=== PATIENT | female | born 1960 | race Caucasian/White ===

== ENCOUNTER 2019-02-20 07:39 | Day surgery (SDC) | payer BC ==
[~2019-02-20 07:39] MED LIST: Lactated Ringers 1,000 ML IV SCH; Sodium Chloride 0.9% 10 ML SDV IV PRN; Sodium Chloride 0.9% 10 ML Syringe FLUSH PRN; Sodium Chloride 0.9% 2.5 ML Syringe FLUSH PRN
--- NOTE | 2019-02-20 09:02 | PCM.PREANE ---
Preanesthetic Assessment - Anesthesia/Transfusion/Family Hx Anesthesia History: Prior Anesthesia Without Reaction Family History of Anesthesia Reaction: No Transfusion History: No Prior Transfusion(s) - Review of Systems General: No Symptoms Pulmonary: No Symptoms Cardiovascular: No Symptoms Gastrointestinal: No Symptoms Neurological: No Symptoms Other: Reports: None - Physical Assessment NPO Status Date: 02/19/19 Vital Signs: Last Vital Signs Temp 97.7 F 02/20/19 08:06 Pulse 82 02/20/19 08:06 Resp 14 02/20/19 08:06 BP 151/76 H 02/20/19 08:06 Pulse Ox 97 02/20/19 08:06 Height: 5 ft 9 in Weight: 112.037 kg ASA Class: 2 Mental Status: Alert & Oriented x3 Airway Class: Mallampati = 2 Dentition: Reports: Normal Dentition ROM/Head Extension: Full Lungs: Clear to Auscultation, Normal Respiratory Effort Cardiovascular: Regular Rate, Regular Rhythm - Allergies Allergies/Adverse Reactions: Allergies Allergy/AdvReac Type Severity Reaction Status Date / Time Penicillins Allergy Cannot Verified 02/20/19 08:38 Remember Sulfa (Sulfonamide Allergy Rash Verified 02/20/19 08:38 Antibiotics) - Blood Blood Available: No - Anesthesia Plan Pre-Op Medication Ordered: None - Acknowledgements Anesthesia Type Planned: General Anesthesia Pt an Appropriate Candidate for the Planned Anesthesia: Yes Alternatives and Risks of Anesthesia Discussed w Pt/Guardian: Yes Pt/Guardian Understands and Agrees with Anesthesia Plan: Yes Additional Comments: anes prob list: large neck circ but denies sx of HAILEY, trace AI, mild MR, heart failure with EF of 55%, DM@, anxiety PLAN: tiva PreAnesthesia Questionnaire HEENT History: Reports: Other (See Below) Other HEENT History: wears glasses Cardiovascular History: Reports: High Cholesterol, Hypertension, Other (See Below) Other Cardiovascular History: aortic and mitral valve regurgitation, both mild Respiratory History: Reports: None Gastrointestinal History: Reports: Other (See Below) Other Gastrointestinal History: occasional heartburn Genitourinary History: Reports: None [employer] MANAGER History: Reports: Musculoskeletal History: Reports: Fracture Other Musculoskeletal History: hx fx wrist, nose and rt tib-fib Neurological History: Reports: Concussion Psychiatric History: Reports: Anxiety Endocrine/Metabolic History: Reports: Diabetes, Type II, Obesity/BMI 30+, Osteopenia Hematologic History: Reports: None Immunologic History: Reports: None Oncologic (Cancer) History: Reports: Squamous Cell Carcinoma Other Oncologic History: skin cancer removed from leg Dermatologic History: Reports: None - Past Surgical History Head Surgeries/Procedures: Reports: None HEENT Surgical History: Reports: None Cardiovascular Surgical History: Reports: None Respiratory Surgical History: Reports: None GI Surgical History: Reports: Appendectomy, Colonoscopy Female Surgical History: Reports: Section Endocrine Surgical History: Reports: None Neurological Surgical History: Reports: None Musculoskeletal Surgical History: Reports: Other (See Below) Other Musculoskeletal Surgeries/Procedures:: ORIF rt tib fib fx Oncologic Surgical History: Reports: None Dermatological Surgical History: Reports: Skin Biopsy - SUBSTANCE USE Smoking Status *Q: Never Smoker Recreational Drug Use History: No - HOME MEDS Home Medications: Home Meds Aspirin [Ecotrin EC] 81 mg PO DAILY 02/14/19 [History] Cholecalciferol (Vitamin D3) [Vitamin D3] 2 tab.chew CHEW DAILY 02/14/19 [ History] Cyanocobalamin (Vitamin B12) [Vitamin B12] 500 mcg PO DAILY 02/14/19 [History] Enalapril [Vasotec] 2.5 mg PO DAILY 02/14/19 [History] Lactobacillus Acidophilus [Probiotic] 1 tab PO DAILY 02/14/19 [History] Multivitamin [Multivitamins] 1 tab PO DAILY 02/14/19 [History] Venlafaxine HCl [Venlafaxine HCl ER] 150 mg PO DAILY 02/14/19 [History] atorvaSTATin Calcium [Atorvastatin Calcium] 10 mg PO DAILY 02/14/19 [History] metFORMIN HCl [Metformin HCl ER] 2 tab PO BID 02/14/19 [History] - CURRENT (IN HOUSE) MEDS Current Meds: Current Medications Lactated Ringer's (Ringers, Lactated) 1,000 mls @ 125 mls/hr IV ASDIRECTED BLAISE Last Admin: 02/20/19 08:31 Dose: 125 mls/hr Sodium Chloride (Saline Flush) 10 ml FLUSH ASDIRECTED PRN PRN Reason: Keep Vein Open Sodium Chloride (Saline Flush) 2.5 ml FLUSH ASDIRECTED PRN PRN Reason: Keep Vein Open Sodium Chloride (Saline Flush) 10 ml FLUSH ASDIRECTED PRN PRN Reason: Keep Vein Open Sodium Chloride (Saline Flush) 2.5 ml FLUSH ASDIRECTED PRN PRN Reason: Keep Vein Open Sodium Chloride (Normal Saline) 10 ml IV ASDIRECTED PRN PRN Reason: IV Use
[2019-02-20] MEDS ORDERED: Propofol 200 MG/20 ML SDV ONE (09:33)
[2019-02-20] MEDS ORDERED: Ketamine 500 mg/10 ML MDV ONE (09:33)
[2019-02-20] MEDS ORDERED: Lidocaine 2% 5 ML SDV ONE (09:33)
--- NOTE | 2019-02-20 11:17 | PCM48HPAN ---
Post Anesthesia Note - EVALUATION WITHIN 48HRS OF ANESTHETIC Vital Signs in Normal Range: Yes Patient Participated in Evaluation: Yes Respiratory Function Stable: Yes Airway Patent: Yes Cardiovascular Function Stable: Yes Hydration Status Stable: Yes Pain Control Satisfactory: Yes Nausea and Vomiting Control Satisfactory: Yes Mental Status Recovered: Yes Vital Signs: Last Vital Signs Temp 97.7 F 02/20/19 08:06 Pulse 69 02/20/19 10:40 Resp 14 02/20/19 10:40 BP 158/76 H 02/20/19 10:40 Pulse Ox 97 02/20/19 10:40
--- NOTE | 2019-02-20 11:17 | PCM.POSTAN ---
POST ANESTHESIA ASSESSMENT - MENTAL STATUS Mental Status: Alert, Oriented - VITAL SIGNS Vital Signs: Last Vital Signs Temp 97.7 F 02/20/19 08:06 Pulse 69 02/20/19 10:40 Resp 14 02/20/19 10:40 BP 158/76 H 02/20/19 10:40 Pulse Ox 97 02/20/19 10:40 - RESPIRATORY Respiratory Status: Respiratory Rate WNL, Airway Patent, O2 Saturation Stable - CARDIOVASCULAR CV Status: Pulse Rate WNL, Blood Pressure Stable - GASTROINTESTINAL GI Status: No Symptoms - POST OP HYDRATION Hydration Status: Adequate & Stable
--- NOTE | 2019-02-20 12:22 | PCM.OPNOTE ---
- General Post-Op/Procedure Note Date of Surgery/Procedure: 02/20/19 Operative Procedure(s): Screening colonoscopy Findings: Normal colonoscopy Pre Op Diagnosis: Screening colonoscopy Post-Op Diagnosis: Normal colonoscopy Anesthesia Technique: MAC Primary Surgeon: Yoana Connolly Condition: Good Free Text/Narrative:: Intake & Output 02/19/19 02/20/19 02/20/19 22:59 06:59 14:59 Intake Total 700 Balance 700
--- NOTE | 2019-02-20 13:13 | OR ---
SURGEON: YOANA CONNOLLY MD DATE OF PROCEDURE: 02/20/2019 PREOPERATIVE DIAGNOSIS: Screening colonoscopy. POSTOPERATIVE DIAGNOSIS: Screening colonoscopy. PROCEDURE PERFORMED: Screening colonoscopy. PRIMARY SURGEON: Yoana Connolly MD. ANESTHESIA: MAC. INSTRUMENT USED: Olympus colonoscope. EXTENT OF EXAM: To the cecum. PREPARATION: Good. LIMITATIONS: None. INDICATION FOR EXAMINATION: The patient is a 59-year-old female who presents for screening colonoscopy. I explained the procedure, expected perioperative course, and risks including bleeding, infection, or damage to surrounding structures including perforation. She verbalized understanding and wishes to proceed. PROCEDURE IN DETAIL: The patient was brought into the endoscopy suite and placed in the left lateral decubitus position. Time-out was completed verifying the patient's name, age, date of , allergies, and procedure to be performed. Monitored anesthesia care was induced and continuous oxygen was provided via nasal cannula throughout the procedure. After adequate sedation was achieved, a digital rectal exam was performed. This exam was within normal limits. A well-lubricated colonoscope was inserted in the rectum and advanced under direct visualization to the level of the cecum. The cecum was identified by both visual and anatomic landmarks. A photograph was taken of the cecal cap as well as with the scope retroflexed within the cecum. The scope was then fully withdrawn while examining the color, texture, anatomy, and integrity of the mucosa from the cecum to the anal canal. The findings were consistent with normal colonic mucosa. The scope was then brought into the rectum and retroflexed to allow visualization of the anal canal opening. This appeared normal and a photograph was taken. Scope was then straightened out and fully withdrawn. The cecum to anus time was greater than 6 minutes. The patient tolerated the procedure well and was transferred to the PACU in stable condition. ENDOSCOPIC DIAGNOSIS: Normal colonoscopy. RECOMMENDATIONS: Follow up in clinic in 10 years. MARLYN / MIHIR /[id number]
== END 2019-02-20 11:06 | disposition home or self-care (01) ==
LOC: MW.SDS 07:39
PROVIDERS: ATTEND Surgery
DX: Z12.11 Encounter for screening for malignant neoplasm of colon (principal); I50.22 Chronic systolic (congestive) heart failure; I08.0 Rheumatic disorders of both mitral and aortic valves; I83.90 Asymptomatic varicose veins of unspecified lower extremity; E11.9 Type 2 diabetes mellitus without complications; E78.5 Hyperlipidemia, unspecified; E55.9 Vitamin D deficiency, unspecified; E66.3 Overweight; F41.9 Anxiety disorder, unspecified; Z88.0 Allergy status to penicillin; Z88.2 Allergy status to sulfonamides; Z68.36 Body mass index [BMI] 36.0-36.9, adult; Z79.82 Long term (current) use of aspirin; Z79.84 Long term (current) use of oral hypoglycemic drugs; Z79.899 Other long term (current) drug therapy
CPT/HCPCS: 45378; J2001; J2704; J7120; 00812

== ENCOUNTER 2023-02-05 07:40 | Day surgery (SDC) | payer BC ==
[~2023-02-05 07:40] MED LIST changes: -Sodium Chloride 0.9% 10 ML SDV IV PRN; -Sodium Chloride 0.9% 10 ML Syringe FLUSH PRN; -Sodium Chloride 0.9% 2.5 ML Syringe FLUSH PRN
[2023-02-05] MEDS ORDERED: fentaNYL 250 MCG/5 ML SDV ONE (08:39)
[2023-02-05] MEDS ORDERED: propofoL 50 ML ONE (08:39)
[2023-02-05] MEDS ORDERED: Propofol 200 MG/20 ML SDV ONE (08:39)
[2023-02-05] MEDS ORDERED: Ondansetron 4 MG/2 ML SDV ONE (09:13)
[2023-02-05] MEDS ORDERED: Sugammadex Sodium 200 MG/2 ML VIAL ONE (09:13)
[2023-02-05] MEDS ORDERED: Rocuronium Bromide 50 MG/5 ML Syringe ONE (09:13)
[2023-02-05] MEDS ORDERED: Ketorolac 30 MG/ML SDV ONE (09:13)
[2023-02-05] MEDS ORDERED: Naloxone 0.4 MG/ML SDV IVPUSH PRN (09:42)
[2023-02-05] MEDS ORDERED: droPERidol 5 MG/2 ML SDV IVPUSH PRN (09:42)
[2023-02-05] MEDS ORDERED: Metoclopramide 10 MG/2 ML SDV IVPUSH PRN (09:42)
[2023-02-05] MEDS ORDERED: fentaNYL 50 MCG/ML SDV IVPUSH PRN (09:42)
[2023-02-05] MEDS ORDERED: Morphine 2 MG/ML SYRINGE IVPUSH PRN (09:42)
[2023-02-05] MEDS ORDERED: HYDROmorphone 1 MG/ML Syringe IVPUSH PRN (09:42)
[2023-02-05] MEDS ORDERED: Albuterol 0.083% 2.5 MG/3 ML Neb Soln NEB PRN (09:42)
[2023-02-05] MEDS ORDERED: Ondansetron 4 MG/2 ML SDV IVPUSH PRN (09:42)
== END 2023-02-05 10:50 | disposition home or self-care (01) ==
LOC: MW.SDS 07:40
PROVIDERS: ATTEND Obstetrics & Gynecology
DX: N95.0 Postmenopausal bleeding (principal); I10 Essential (primary) hypertension; E78.5 Hyperlipidemia, unspecified; E78.00 Pure hypercholesterolemia, unspecified; E11.9 Type 2 diabetes mellitus without complications; F41.9 Anxiety disorder, unspecified; M85.80 Other specified disorders of bone density and structure, unspecified site; E66.9 Obesity, unspecified; Z88.0 Allergy status to penicillin; Z88.2 Allergy status to sulfonamides; Z79.82 Long term (current) use of aspirin; Z79.899 Other long term (current) drug therapy; Z79.84 Long term (current) use of oral hypoglycemic drugs; Z68.37 Body mass index [BMI] 37.0-37.9, adult
CPT/HCPCS: 58558; J1885; J2704; J3010; J3490; J7120; 00952; J2405

== ENCOUNTER 2023-03-21 07:30 | Emergency (ER) | payer BC ==
[2023-03-21] MEDS ORDERED: Sodium Chloride 0.9% 2.5 ML Syringe FLUSH PRN (07:48)
[2023-03-21] MEDS ORDERED: Sodium Chloride 0.9% 10 ML Syringe FLUSH PRN (07:48)
[2023-03-21] MEDS ORDERED: Ketorolac 30 MG/ML SDV IVPUSH ONE ×2 (07:49→15:05)
[2023-03-21] MEDS ORDERED: Ondansetron 4 MG/2 ML SDV IVPUSH ONE ×2 (07:49→15:05)
[2023-03-21] MEDS ORDERED: Sodium Chloride 0.9% 1,000 ML IV ONE (07:50)
[2023-03-21 08:15] LABS: APPEARANCE,URINE SLT CLOUDY; BILIRUBIN,URINE NEGATIVE (NEGATIVE); COLOR,URINE YELLOW; GLUCOSE,URINE NEGATIVE (NEGATIVE); KETONES,URINE NEGATIVE (NEGATIVE); LEUKOCYTE ESTERASE,URINE NEGATIVE (NEGATIVE); NITRITE,URINE NEGATIVE (NEGATIVE); OCCULT BLOOD,URINE MODERATE (NEGATIVE); PH,URINE 7.5 (5.0-8.0); PROTEIN,URINE TRACE mg/dL (NEGATIVE); UROBILINOGEN,URINE 0.2 EU/dL (<2.0)
[2023-03-21 08:23] LABS: AMORPHOUS SEDIMENT,URINE FEW (NEGATIVE); BACTERIA,URINE 1+ (NEGATIVE); EPITHELIAL CELLS,URINE RARE (NONE-FEW); MUCUS,URINE LIGHT (NONE-MOD); WBC,URINE 0-1 (0-5/HPF)
[2023-03-21 08:30] LABS: BASOPHILS ABSOLUTE AUTO 0.04 K/uL (0.00-0.20); BASOPHILS PERCENT AUTO 0.3 % (0.0-1.0); EOSINOPHILS ABSOLUTE AUTO 0.01 K/uL (0.00-0.45); EOSINOPHILS PERCENT AUTO 0.1 % (0.0-6.0); HEMATOCRIT 37.9 % (37.0-47.0); HEMOGLOBIN 12.7 g/dL (12.0-16.0); IMMATURE GRAN ABSOLUTE AUTO 0.05 K/uL (0.00-0.05); IMMATURE GRAN PERCENT AUTO 0.4 % (0.0-0.4); LYMPHOCYTES ABSOLUTE AUTO 0.96 K/uL (1.00-4.80); LYMPHOCYTES PERCENT AUTO 7.2 % (24.0-44.0); MEAN CORPUSCULAR HEMOGLOBIN 27.9 pg (28.0-32.0); MEAN CORPUSCULAR HGB CONC 33.5 g/dL (32.0-36.0); MEAN CORPUSCULAR VOLUME 83.1 fL (83.0-99.0); MEAN PLATELET VOLUME 10.3 fL (9.4-12.3); MONOCYTES ABSOLUTE AUTO 0.52 K/uL (0.00-0.80); MONOCYTES PERCENT AUTO 3.9 % (0.0-8.0); NEUTROPHILS ABSOLUTE AUTO 11.73 K/uL (1.80-7.70); NEUTROPHILS PERCENT AUTO 88.1 % (41.0-71.0); PLATELET COUNT,PLT 267 K/uL (150-400); RED BLOOD CELL COUNT 4.56 M/uL (4.10-5.30); WHITE BLOOD CELL COUNT,WBC 13.31 K/uL (3.9-11.3)
[2023-03-21 08:50] LABS: BILIRUBIN TOTAL 0.8 mg/dL (0.2-1.0); CALCIUM 10.4 mg/dL (8.5-10.1); CARBON DIOXIDE,CO2 25.4 mmol/L (21.0-32.0); CREATININE 1.2 mg/dL (0.6-1.0); EST CRCL DRUG DOSING (CG) 49.5 mL/min; POTASSIUM,K 4.1 mmol/L (3.5-5.1); PROTEIN TOTAL,TP 8.1 g/dL (6.4-8.2)
[2023-03-21] MEDS ORDERED: Iopamidol 755 MG/ML 500 ML Multipack Bottle IVPUSH STA (09:20)
[2023-03-21] MEDS ORDERED: cefTRIAXone 2 GM in Sodium Chloride 0.9% 50 ML IV ONE (10:09)
[2023-03-21] MEDS ORDERED: Naloxone 0.4 MG/ML SDV IVPUSH PRN (12:37)
[2023-03-21] MEDS ORDERED: Morphine 2 MG/ML SYRINGE IVPUSH ONE (12:37)
[2023-03-21] MEDS ORDERED: Sodium Chloride 0.9% 1,000 ML IV SCH (15:00)
== END 2023-03-21 15:21 ==
LOC: MW.ED 07:30
DX: N39.0 Urinary tract infection, site not specified (principal); N13.2 Hydronephrosis with renal and ureteral calculous obstruction; I10 Essential (primary) hypertension; E78.00 Pure hypercholesterolemia, unspecified; E11.9 Type 2 diabetes mellitus without complications; E66.9 Obesity, unspecified; Z68.33 Body mass index [BMI] 33.0-33.9, adult; Z79.899 Other long term (current) drug therapy; Z79.82 Long term (current) use of aspirin; Z88.0 Allergy status to penicillin; Z88.2 Allergy status to sulfonamides
CPT/HCPCS: 36415; 74177; 80053; 81001; 83690; 85025; 96361; 96365; 96375; 96376; 99285; J0696; J1885; J2270; J2405; J3490; J7030; Q9967; 99291

== ENCOUNTER 2023-07-31 11:48 | Emergency (ER) | payer BC ==
[2023-07-31 13:05] LABS: BASOPHILS ABSOLUTE AUTO 0.04 K/uL (0.00-0.20); BASOPHILS PERCENT AUTO 0.5 % (0.0-1.0); EOSINOPHILS ABSOLUTE AUTO 0.15 K/uL (0.00-0.45); HEMATOCRIT 35.7 % (37.0-47.0); HEMOGLOBIN 11.9 g/dL (12.0-16.0); IMMATURE GRAN ABSOLUTE AUTO 0.02 K/uL (0.00-0.05); IMMATURE GRAN PERCENT AUTO 0.3 % (0.0-0.4); LYMPHOCYTES ABSOLUTE AUTO 1.36 K/uL (1.00-4.80); LYMPHOCYTES PERCENT AUTO 18.2 % (24.0-44.0); MEAN CORPUSCULAR HEMOGLOBIN 28.6 pg (28.0-32.0); MEAN CORPUSCULAR HGB CONC 33.3 g/dL (32.0-36.0); MEAN CORPUSCULAR VOLUME 85.8 fL (83.0-99.0); MEAN PLATELET VOLUME 10.2 fL (9.4-12.3); MONOCYTES ABSOLUTE AUTO 0.48 K/uL (0.00-0.80); MONOCYTES PERCENT AUTO 6.4 % (0.0-8.0); NEUTROPHILS ABSOLUTE AUTO 5.43 K/uL (1.80-7.70); NEUTROPHILS PERCENT AUTO 72.6 % (41.0-71.0); PLATELET COUNT,PLT 212 K/uL (150-400); RED BLOOD CELL COUNT 4.16 M/uL (4.10-5.30); WHITE BLOOD CELL COUNT,WBC 7.48 K/uL (3.9-11.3)
[2023-07-31 13:31] LABS: A/G RATIO 0.9 (0.9-1.6); ALBUMIN 3.5 g/dL (3.4-5.0); BILIRUBIN TOTAL 0.9 mg/dL (0.2-1.0); CALCIUM 10.5 mg/dL (8.5-10.1); CARBON DIOXIDE,CO2 27.8 mmol/L (21.0-32.0); CREATININE 0.8 mg/dL (0.6-1.0); EST CRCL DRUG DOSING (CG) 74.24 mL/min; POTASSIUM,K 4.1 mmol/L (3.5-5.1); PROTEIN TOTAL,TP 7.4 g/dL (6.4-8.2); URIC ACID 3.9 mg/dL (2.6-7.2)
== END 2023-07-31 14:03 | disposition home or self-care (01) ==
LOC: MW.ED 11:48
DX: M79.662 Pain in left lower leg (principal); I10 Essential (primary) hypertension; E78.00 Pure hypercholesterolemia, unspecified; E11.9 Type 2 diabetes mellitus without complications; E66.9 Obesity, unspecified; Z75.8 Other problems related to medical facilities and other health care; Z88.0 Allergy status to penicillin; Z88.2 Allergy status to sulfonamides; Z79.82 Long term (current) use of aspirin; Z79.84 Long term (current) use of oral hypoglycemic drugs; Z68.32 Body mass index [BMI] 32.0-32.9, adult
CPT/HCPCS: 36415; 80053; 84550; 85025; 93971-26-LT; 93971-LT; 99283

== ENCOUNTER 2024-11-27 05:07 | Observation (INO) | payer MEDICARE ==
[2024-11-27] MEDS ORDERED: Sodium Chloride 0.9% 2.5 ML Syringe FLUSH PRN (05:35)
[2024-11-27] MEDS ORDERED: Sodium Chloride 0.9% 10 ML Syringe FLUSH PRN (05:35)
[2024-11-27 05:40] LABS: BASOPHILS ABSOLUTE AUTO 0.04 K/uL (0.00-0.20); BASOPHILS PERCENT AUTO 0.5 % (0.0-1.0); EOSINOPHILS ABSOLUTE AUTO 0.18 K/uL (0.00-0.45); EOSINOPHILS PERCENT AUTO 2.3 % (0.0-6.0); IMMATURE GRAN ABSOLUTE AUTO 0.02 K/uL (0.00-0.05); IMMATURE GRAN PERCENT AUTO 0.3 % (0.0-0.4); LYMPHOCYTES ABSOLUTE AUTO 1.06 K/uL (1.00-4.80); LYMPHOCYTES PERCENT AUTO 13.7 % (24.0-44.0); MEAN PLATELET VOLUME 10.1 fL (9.4-12.3); MONOCYTES ABSOLUTE AUTO 0.42 K/uL (0.00-0.80); MONOCYTES PERCENT AUTO 5.4 % (0.0-8.0); NEUTROPHILS ABSOLUTE AUTO 6.00 K/uL (1.80-7.70); NEUTROPHILS PERCENT AUTO 77.8 % (41.0-71.0); NRBC ABSOLUTE 0.00 K/uL (0.00-0.02); NRBC PERCENT 0.0 /100WBC (0.0-0.2); PLATELET COUNT,PLT 264 K/uL (150-400); RED BLOOD CELL COUNT 4.22 M/uL (4.10-5.30); WHITE BLOOD CELL COUNT,WBC 7.72 K/uL (3.9-11.3)
[2024-11-27] MEDS: Ketorolac 30 MG/ML SDV IVPUSH ONE (05:48)
[2024-11-27] MEDS: Ondansetron 4 MG/2 ML SDV IVPUSH ONE (05:49)
[2024-11-27 05:55] LABS: APPEARANCE,URINE CLOUDY; GLUCOSE,URINE NEGATIVE (NEGATIVE); OCCULT BLOOD,URINE NEGATIVE (NEGATIVE)
[2024-11-27 06:01] LABS: A/G RATIO 1.0 (0.9-1.6); ALANINE AMINOTRANSFERASE,ALT 58.0 IU/L (14-63); ASPARTATE AMNIOTRANSFERASE,AST 42.0 IU/L (15-37); BILIRUBIN TOTAL 1.1 mg/dL (0.2-1.0); BLOOD UREA NITROGEN,BUN 16.0 mg/dL (7.0-18.0); CHLORIDE,CL 99.0 mmol/L (98-107); CREATININE 0.8 mg/dL (0.6-1.0); EST CRCL DRUG DOSING (CG) 73.27 mL/min; GLUCOSE RANDOM 118.0 mg/dL (74-106); POTASSIUM,K 3.8 mmol/L (3.5-5.1); PROTEIN TOTAL,TP 8.0 g/dL (6.4-8.2); SODIUM,NA 136.0 mmol/L (136-145)
[2024-11-27] MEDS: Iopamidol 755 MG/ML 500 ML Multipack Bottle IVPUSH STA (06:13)
[2024-11-27 06:32] LABS: ESTIMATED GFR 82.0 mL/min (>60)
[2024-11-27 06:36] LABS: CARBON DIOXIDE,CO2 27.8 mmol/L (21.0-32.0)
[2024-11-27] MEDS ORDERED: Naloxone 0.4 MG/ML SDV IVPUSH PRN ×2 (08:57→09:02)
[2024-11-27] MEDS ORDERED: fentaNYL 50 MCG/ML SDV IVPUSH PRN (09:02)
[2024-11-27] MEDS ORDERED: Albuterol 0.083% 2.5 MG/3 ML Neb Soln NEB PRN (09:02)
[2024-11-27] MEDS ORDERED: Ondansetron 4 MG/2 ML SDV IVPUSH PRN (09:02)
[2024-11-27] MEDS: Lactated Ringers 1,000 ML IV SCH (09:12)
[2024-11-27] MEDS ORDERED: Propofol 200 MG/20 ML SDV ONE ×2 (09:49→11:12)
[2024-11-27] MEDS ORDERED: fentaNYL 250 MCG/5 ML SDV ONE (09:49)
[2024-11-27] MEDS ORDERED: propofoL 500 MG/50 ML 50 ML ONE (09:49)
[2024-11-27] MEDS ORDERED: Ketamine HCL/NACL, ISO-OSM 50 MG/5 ML Syringe ONE (09:50)
[2024-11-27] MEDS ORDERED: Ropivacaine 0.5% 5 MG/ML 30 ML SDV ONE (09:51)
[2024-11-27] MEDS ORDERED: Morphine 10 MG/ML SDV ONE (09:51)
[2024-11-27] MEDS ORDERED: Indocyanine Green 25 MG SDV ONE (10:18)
[2024-11-27] MEDS ORDERED: Acetaminophen/HYDROcodone 325-5 MG Tab PO PRN (11:34)
[2024-11-27] MEDS ORDERED: diphenhydrAMINE 50 MG/ML SDV IVPUSH PRN (11:34)
[2024-11-27] MEDS ORDERED: Ketorolac 30 MG/ML SDV ONE (11:40)
[2024-11-27] MEDS ORDERED: Dexamethasone 4 MG/ML 5 ML MDV ONE (11:40)
[2024-11-27] MEDS ORDERED: Ondansetron 4 MG/2 ML SDV ONE ×2 (11:40→11:41)
== END 2024-11-27 16:55 | disposition home or self-care (01) ==
LOC: MW.ED 05:07 → MW.MS 07:21
PROVIDERS: ADMIT Surgery; ATTEND Surgery
DX: K80.00 Calculus of gallbladder with acute cholecystitis without obstruction (principal); I10 Essential (primary) hypertension; E78.00 Pure hypercholesterolemia, unspecified; E11.9 Type 2 diabetes mellitus without complications; E66.9 Obesity, unspecified; Z88.0 Allergy status to penicillin; Z88.2 Allergy status to sulfonamides; Z79.899 Other long term (current) drug therapy
CPT/HCPCS: 36415; 47562; 74177; 80053; 81003; 83690; 85025; 87070; 87075; 87205; 93005; 96361; 96365; 96375; 99284; G0378; J0665; J1100; J1308; J1885; J2272; J2405; J2543; J2704; J2795; J3010; J7030; J7120; Q9967; 00790; 64488; 88304; 93010; 99285; J1171; J3490